=== PATIENT | female | born 1950 | race Caucasian/White ===

== ENCOUNTER 2017-02-01 08:03 | Emergency (ER) | payer OTHER, MEDICARE ==
[~2017-02-01 08:03] MED LIST: ADVAIR 1001 DISK W/D; ADVAIR 2501 DISK W/D; ALBUTEROL17 GM; ALLERGY SHOTS; AMARYL1 MG; AMARYL4 MG; APIDRA SC; ASPIRIN EC81 MG PO; AVANDIA8 MG; B COMPLEX1 CAP; BAYER81 MG; BEE WITH C1 CAP PO; BYETTA10 MCG/0.0; CALCIUM 600 WI1 EACH; CALTRATE 600 +1 EAC2 PO; CITRACAL + D CA1 TAB; CPAP; DARVOCET-N 1001 TAB PO; DIOVAN HCT 320/1 TAB; DIOVAN HCT 3201 EACH PO; DIOVAN320 MG; DIOVAN80 MG; EFFEXOR XR75 MG; K-DUR20 ME1 PO; LEVEMIR100 U/M SQ; LEVEMIR100 UNITS/ SC; LEVOXYL50 MCG; MILK OF MAGNES311 MG PO; ONE DAILY WOMEN1 TAB; PAXIL CR25 M1 PO; PAXIL CR25 MG; PAXIL20 MG PO; PAXIL40 MG; PERCOCET 5/3251 TAB PO; PRILOSEC20 MG; SENOKOT8.6 MG PO; SYMBICORT 160-1 PUFF INH; VENTOLIN HFA18 G2 INH; VITAMIN D2000 UNIT PO; WOMEN'S DAILY1 EAC6 PO; XARELTO10 MG PO; ZOCOR10 MG PO; ZOFRAN4 MG PO; ZYRTEC10 MG; [UNRECOGNIZED DRUG - OTHER]
[2017-02-01] MEDS ORDERED: ATORVASTATIN CA10 M1 PO (08:20)
[2017-02-01] MEDS ORDERED: METHIMAZOLE5 M1 PO (08:22)
[2017-02-01] MEDS ORDERED: LEVEMIR100 UNITS/ SC (09:19)
[2017-02-01 09:20] LABS: URINE APPEARANCE CLEAR; URINE BILIRUBIN NEGATIVE (NEG); URINE BLOOD NEGATIVE (NEG); URINE COLOR YELLOW; URINE GLUCOSE (UA) LARGE (NEG); URINE KETONE MODERATE (NEG); URINE LEUKOCYTE ESTERASE NEGATIVE (NEG); URINE NITRITE NEGATIVE (NEG); URINE PROTEIN NEGATIVE (NEG); URINE SPECIFIC GRAVITY 1.015 (1.003-1.030)
[2017-02-01 09:55] LABS: BASO % 0.5 % (0-2); EOS % 2.6 % (0-7); EOSINOPHIL ABSOLUTE COUNT 0.2 tho/cmm (0.0-0.7); HGB-HEMOGLOBIN 15.1 gm/dl (12.0-15.5); IMMATURE GRANULOCYTES ABSOLUTE 0.02 tho/cmm (0-0.03); IMMATURE GRANULOCYTES PERCENT 0.3 % (0-0.3); LYMPH ABSOLUTE COUNT 1.7 tho/cmm (0.8-4.5); MCH (MEAN CORPUSCULAR HGB) 29.8 pg (28.0-32.0); MCHC MEAN CORPUSCULAR HGB CONC 34.3 % (32.0-36.0); MEAN PLATELET VOLUME 9.8 cmc (9.4-12.4); MONO % 6.8 % (0-12); MONOCYTE ABSOLUTE COUNT 0.5 tho/cmm (0.0-1.2); NEUTROPHIL ABSOLUTE COUNT 5.3 tho/cmm (1.6-8.0); NEUTROPHIL-AUTOMATED 5.3 tho/cmm (1.6-8.0); NEUTROPHILS % 67.8 % (40-80); PLATELET COUNT 246 tho/cmm (150-450); RED BLOOD COUNT 5.06 mil/cmm (4.00-5.20); RED CELL DISTRIBUTION WIDTH 12.6 % (12.4-16.4); WHITE BLOOD COUNT 7.8 tho/cmm (4.0-10.0)
[2017-02-01 10:17] LABS: ALBUMIN 3.7 g/dl (3.5-5.0); ALKALINE PHOSPHATASE 94 U/L (33-138); ALT/SGPT 29 U/L (12-78); ANION GAP 11 mmol/L (0-20); AST/SGOT 16 U/L (10-40); BILIRUBIN,TOTAL 0.8 mg/dl (0-1.5); BLOOD UREA NITROGEN 17 mg/dl (6-24); CALCIUM 10.7 mg/dl (8.5-10.5); CARBON DIOXIDE-VENOUS 29 mmol/L (22-32); CHLORIDE 102 mmol/l (96-110); CREATININE 0.86 mg/dl (0.50-1.10); GLUCOSE 328 mg/dL (70-110); LIPASE 160 U/L (73-393); POTASSIUM 3.6 mmol/L (3.7-5.1); SODIUM 138 mmol/L (135-145); eGFR VALUE FOR BLACK 82 mL/Min
[2017-02-01] MEDS ORDERED: PERCOCET 5-3251 EACH PO (11:04)
[2017-02-01] MEDS ORDERED: ZOFRAN4 M2 PO (11:04)
[2017-02-19] MEDS ORDERED: HYDROCODON-ACE1 EA16 PO (13:46)
[2017-03-19] MEDS ORDERED: SOMATULINE120 MG/0.5 SC (10:36)
[2017-03-19] MEDS ORDERED: CPAP (10:38)
== END 2017-02-01 11:19 ==
LOC: EDMED 08:03
PROVIDERS: Emergency Medicine
DX: R16.0 Hepatomegaly, not elsewhere classified (principal); E11.9 Type 2 diabetes mellitus without complications; I10 Essential (primary) hypertension; E78.5 Hyperlipidemia, unspecified; J45.909 Unspecified asthma, uncomplicated; E07.9 Disorder of thyroid, unspecified; Z79.4 Long term (current) use of insulin; Z79.899 Other long term (current) drug therapy; Z79.51 Long term (current) use of inhaled steroids; Z90.49 Acquired absence of other specified parts of digestive tract
CPT/HCPCS: J2270; J2405; J7030; Q9967

== ENCOUNTER 2017-02-21 08:55 | Day surgery (SDC) | payer OTHER, MEDICARE ==
[~2017-02-21 08:55] MED LIST changes: +ATORVASTATIN CA10 M1 PO; +HYDROCODON-ACE1 EA16 PO; +METHIMAZOLE5 M1 PO; +PERCOCET 5-3251 EACH PO; +ZOFRAN4 M2 PO
[2017-02-21 09:55] LABS: BASO % 0.4 % (0-2); EOSINOPHIL ABSOLUTE COUNT 0.4 tho/cmm (0.0-0.7); HCT-HEMATOCRIT 42.2 % (34.0-49.0); HGB-HEMOGLOBIN 14.4 gm/dl (12.0-15.5); IMMATURE GRANULOCYTES ABSOLUTE 0.02 tho/cmm (0-0.03); IMMATURE GRANULOCYTES PERCENT 0.2 % (0-0.3); LYMPH % 19.1 % (20-45); LYMPH ABSOLUTE COUNT 1.6 tho/cmm (0.8-4.5); MCH (MEAN CORPUSCULAR HGB) 29.8 pg (28.0-32.0); MCHC MEAN CORPUSCULAR HGB CONC 34.1 % (32.0-36.0); MCV (MEAN CELL VOLUME) 87.2 fl (82.0-96.0); MEAN PLATELET VOLUME 9.7 cmc (9.4-12.4); MONO % 8.9 % (0-12); MONOCYTE ABSOLUTE COUNT 0.7 tho/cmm (0.0-1.2); NEUTROPHIL ABSOLUTE COUNT 5.6 tho/cmm (1.6-8.0); NEUTROPHIL-AUTOMATED 5.6 tho/cmm (1.6-8.0); NEUTROPHILS % 66.4 % (40-80); PLATELET COUNT 251 tho/cmm (150-450); RED BLOOD COUNT 4.84 mil/cmm (4.00-5.20); RED CELL DISTRIBUTION WIDTH 13.4 % (12.4-16.4); WHITE BLOOD COUNT 8.4 tho/cmm (4.0-10.0)
[2017-02-21 10:05] LABS: ANION GAP 14 mmol/L (0-20); BLOOD UREA NITROGEN 31 mg/dl (6-24); CALCIUM 9.3 mg/dl (8.5-10.5); CARBON DIOXIDE-VENOUS 30 mmol/L (22-32); CHLORIDE 103 mmol/l (96-110); CREATININE 1.07 mg/dl (0.50-1.10); GLUCOSE 133 mg/dL (70-110); POTASSIUM 3.6 mmol/L (3.7-5.1); SODIUM 143 mmol/L (135-145); eGFR VALUE FOR BLACK 63 mL/Min
[2017-02-21 10:12] LABS: PROTHROMBIN TIME 11.2 SECONDS (9.0-13.6)
[2017-02-21] MEDS ORDERED: PERCOCET 5-3251 EACH PO (10:33)
[2017-03-19] MEDS ORDERED: SOMATULINE120 MG/0.5 SC (10:36)
[2017-03-19] MEDS ORDERED: CPAP (10:38)
== END 2017-02-21 13:58 ==
LOC: US 08:55 → SHSB 08:56
PROVIDERS: Radiology Diagnostic Radiology
DX: C78.7 Secondary malignant neoplasm of liver and intrahepatic bile duct (principal); F41.9 Anxiety disorder, unspecified; I10 Essential (primary) hypertension; M19.90 Unspecified osteoarthritis, unspecified site; E11.9 Type 2 diabetes mellitus without complications; E78.5 Hyperlipidemia, unspecified; Z79.4 Long term (current) use of insulin; Z79.82 Long term (current) use of aspirin; Z79.899 Other long term (current) drug therapy; Z88.1 Allergy status to other antibiotic agents; Z91.048 Other nonmedicinal substance allergy status; Z90.49 Acquired absence of other specified parts of digestive tract; Z90.710 Acquired absence of both cervix and uterus; Z96.659 Presence of unspecified artificial knee joint; Z96.619 Presence of unspecified artificial shoulder joint; Z98.890 Other specified postprocedural states
CPT/HCPCS: A4648; J3010; J7030

== ENCOUNTER 2017-03-21 10:42 | Day surgery (SDC) | payer OTHER, MEDICARE ==
[~2017-03-21 10:42] MED LIST changes: +SOMATULINE120 MG/0.5 SC
[2017-03-21 11:26] LABS: BASO % 0.4 % (0-2); EOS % 3.8 % (0-7); EOSINOPHIL ABSOLUTE COUNT 0.3 tho/cmm (0.0-0.7); HCT-HEMATOCRIT 42.5 % (34.0-49.0); HGB-HEMOGLOBIN 14.8 gm/dl (12.0-15.5); IMMATURE GRANULOCYTES ABSOLUTE 0.02 tho/cmm (0-0.03); IMMATURE GRANULOCYTES PERCENT 0.3 % (0-0.3); LYMPH % 13.4 % (20-45); MCH (MEAN CORPUSCULAR HGB) 30.3 pg (28.0-32.0); MCHC MEAN CORPUSCULAR HGB CONC 34.8 % (32.0-36.0); MCV (MEAN CELL VOLUME) 87.1 fl (82.0-96.0); MEAN PLATELET VOLUME 9.3 cmc (9.4-12.4); MONOCYTE ABSOLUTE COUNT 0.4 tho/cmm (0.0-1.2); NEUTROPHIL ABSOLUTE COUNT 5.5 tho/cmm (1.6-8.0); NEUTROPHIL-AUTOMATED 5.5 tho/cmm (1.6-8.0); NEUTROPHILS % 76.1 % (40-80); PLATELET COUNT 220 tho/cmm (150-450); RED BLOOD COUNT 4.88 mil/cmm (4.00-5.20); RED CELL DISTRIBUTION WIDTH 14.5 % (12.4-16.4); WHITE BLOOD COUNT 7.3 tho/cmm (4.0-10.0)
[2017-03-21 11:30] LABS: INR 0.9 INR (0.9-1.1); PROTHROMBIN TIME 10.9 SECONDS (9.0-13.6)
[2017-03-21 11:35] LABS: ANION GAP 13 mmol/L (0-20); BLOOD UREA NITROGEN 15 mg/dl (6-24); CALCIUM 9.3 mg/dl (8.5-10.5); CARBON DIOXIDE-VENOUS 30 mmol/L (22-32); CHLORIDE 104 mmol/l (96-110); CREATININE 0.74 mg/dl (0.50-1.10); GLUCOSE 198 mg/dL (70-110); POTASSIUM 3.9 mmol/L (3.7-5.1); SODIUM 143 mmol/L (135-145); eGFR VALUE FOR BLACK >90 mL/Min
== END 2017-03-21 19:00 ==
LOC: SHSB 10:42
PROVIDERS: Radiology Diagnostic Radiology
PROC: 0F513ZZ Destruction of Right Lobe Liver, Percutaneous Approach (ICD-10-PCS; principal; 2017-03-21)
DX: R16.0 Hepatomegaly, not elsewhere classified (principal); I10 Essential (primary) hypertension; M19.90 Unspecified osteoarthritis, unspecified site; E11.9 Type 2 diabetes mellitus without complications; E05.90 Thyrotoxicosis, unspecified without thyrotoxic crisis or storm; F41.9 Anxiety disorder, unspecified; F32.9 Major depressive disorder, single episode, unspecified; J45.909 Unspecified asthma, uncomplicated; K21.9 Gastro-esophageal reflux disease without esophagitis; E78.5 Hyperlipidemia, unspecified; K59.00 Constipation, unspecified; Z79.4 Long term (current) use of insulin; Z79.82 Long term (current) use of aspirin; Z79.899 Other long term (current) drug therapy; Z88.1 Allergy status to other antibiotic agents; Z88.8 Allergy status to other drugs, medicaments and biological substances; Z85.110 Personal history of malignant carcinoid tumor of bronchus and lung; Z90.710 Acquired absence of both cervix and uterus; Z90.49 Acquired absence of other specified parts of digestive tract; Z90.2 Acquired absence of lung [part of]; Z96.612 Presence of left artificial shoulder joint; Z96.652 Presence of left artificial knee joint; Z98.890 Other specified postprocedural states
CPT/HCPCS: J0690; Q9967

== ENCOUNTER 2017-04-28 13:29 | Emergency (ER) | payer OTHER, MEDICARE | END 2017-04-28 14:53 | disposition T | LOC: EDMED 13:29 | DX: M54.6 Pain in thoracic spine (principal); I10 Essential (primary) hypertension; J45.909 Unspecified asthma, uncomplicated; E03.9 Hypothyroidism, unspecified; Z79.51 Long term (current) use of inhaled steroids; Z79.82 Long term (current) use of aspirin; Z79.899 Other long term (current) drug therapy; V49.50XA Passenger injured in collision with unspecified motor vehicles in traffic accident, initial encounter; Y92.410 Unspecified street and highway as the place of occurrence of the external cause ==